=== PATIENT | male | born 1940 | race Caucasian/White ===

== ENCOUNTER → 2016-07-19 | Outpatient (CLI) | payer MEDICARE, OTHER | LOC: LAB 12:24 | DX: R05 Cough (principal) ==

== ENCOUNTER 2016-11-28 16:32 | Emergency (ER) | payer MEDICARE, BC ==
[2016-11-28 17:40] LABS: HEMOGLOBIN 12.7 gm/dl (14.0-17.5); RED BLOOD COUNT 4.31 M/UL (4.20-5.50)
[2016-11-28 18:28] LABS: BUN/CREATININE RATIO 17 (0-10)
== END 2016-11-28 21:25 | disposition home or self-care (01) ==
LOC: ER1 16:32
PROVIDERS: Emergency Medicine; Family Medicine
DX: F03.90 Unspecified dementia, unspecified severity, without behavioral disturbance, psychotic disturbance, mood disturbance, and anxiety (principal); N39.0 Urinary tract infection, site not specified; I10 Essential (primary) hypertension; Z88.8 Allergy status to other drugs, medicaments and biological substances; Z79.82 Long term (current) use of aspirin; Z86.73 Personal history of transient ischemic attack (TIA), and cerebral infarction without residual deficits
CPT/HCPCS: 36415; 70450; 71010; 80053; 81001; 82550; 82553; 83874; 84484; 85025; 85610; 85730; 87077; 87086; 87186; 93005; 99285

== ENCOUNTER → 2020-04-15 | Outpatient (CLI) | payer MEDICARE, BC, OTHER ==
[~2020-04-15] MED LIST: ARICEPT10 MG PO; ARTIFICIAL TEA1 EAC1 OP; CARBIDOPA-LEVO1 EAC6 PO; CLARITIN10 MG PO; CRESTOR5 MG PO; DEPAKOTE SPRIN125 MG PO; ECOTRIN81 MG PO; EFFEXOR XR75 MG PO; ESTRACE1 MG PO; FLOMAX0.4 MG PO; MIRALAX17 GM PO; NAMENDA10 MG PO; PRINIVIL20 MG PO; SYNTHROID150 MCG PO; TYLENOL 500 MG500 MG PO; VITAMIN D250000 UNIT PO; VOLTAREN100 GM TP; ZINC OXIDE OINT30 GM EXT
[2020-04-15 05:55] LABS: RED BLOOD COUNT 4.45 M/UL (4.20-5.50); WHITE BLOOD COUNT 6.6 K/UL (4.5-11.0)
[2020-04-15 06:22] LABS: BUN/CREATININE RATIO 14 (0-10)
== END ==
LOC: LAB 05:35
PROVIDERS: Emergency Medicine
DX: U07.1 COVID-19 (principal); I10 Essential (primary) hypertension; E11.8 Type 2 diabetes mellitus with unspecified complications; E78.5 Hyperlipidemia, unspecified
CPT/HCPCS: 80053; 80061; 83036; 85025